=== PATIENT | female | born 1950 | race Two or more races ===

== ENCOUNTER 2024-05-18 13:14 | Outpatient (AMB) | payer MEDICARE, BC, SELFPAY ==
--- NOTE | 2024-05-18 13:33 | PD.ORTHCLVIS ---
Vital signs 05/18/24 13:34 Height 1.55 m Height Method Stated Weight 76 kg Weight Measurement Method Standing Scale BMI 31.6 BP 126/81 Blood Pressure Source Automatic Cuff Blood Pressure Location Right Upper Arm Position Sitting Respiration 18 Pulse 70 Pulse Source Monitor Temp 97.7 F Temp Source Temporal Artery Scan Pulse Oximetry (%) 94 L Oxygen Delivery Method Room Air Med/Allergies Allergies & Medications Allergies No Known Allergies Allergy (Verified 05/18/24 13:36) Medication Reconciliation aspirin 81 mg tablet,delayed release 81 mg PO QDAY 05/04/24 [History Confirmed 05/18/24] cholecalciferol (vitamin D3) 25 mcg (1,000 unit) tablet (Vitamin D3) 25 mcg PO QDAY 05/04/24 [History Confirmed 05/18/24] naproxen 250 mg tablet 250 mg PO BID PRN Pain 05/04/24 [History Confirmed 05/18/24] aspirin 81 mg tablet,delayed release 81 mg PO BID #60 tabs 05/05/24 [Rx Confirmed 05/18/24] doxycycline hyclate 100 mg tablet 100 mg PO BID #14 tabs 05/05/24 [Rx Confirmed 05/18/24] gabapentin 300 mg capsule 300 mg PO .qhs #30 caps 05/05/24 [Rx Confirmed 05/18/24] meloxicam 7.5 mg tablet 7.5 mg PO QDAY #30 tabs 05/05/24 [Rx Confirmed 05/18/24] acetaminophen 500 mg tablet (Acetaminophen Extra Strength) 1,000 mg (2 x 500 mg) PO Q6H PRN pain #90 tabs 05/11/24 [Rx Confirmed 05/18/24] oxycodone 5 mg tablet 5 mg PO Q6H PRN pain #28 tabs 05/11/24 [Rx Confirmed 05/18/24] sennosides 8.6 mg-docusate sodium 50 mg tablet (Senna-S) 1 tab-cap PO QDAY #30 tabs 05/11/24 [Rx Confirmed 05/18/24] Subjective Visit Visit for: follow up visit Immunization / Flu Flu Vaccine in the Last 12 Months: Yes Date of most recent flu vaccination: 04/03/23 Flu Vaccine Exclusion Criteria: Already Received History of Present Illness Chief complaint: 2 MONTH FOLLOW UP DAPHNE Pack is a pleasant 73-year-old female who has had knee pain. She is s/p R TKA. Personal History Red flag PMH: smoker Pain Pain level (0-10): 3 Pain duration: CONSTANT Pain location: inside (medial) Pain quality: aching Pain timing: night and increases with activity Associated signs & symptoms: weakness Ambulatory data Ambulatory device: none Treatments Improvement with previous injections: No Improvement with PT: No Improvement with NSAIDS: no Review of Systems Review of Systems: All systems negative unless otherwise noted in HPI. Exam Exam Patient is in no acute distress and is cooperative with the examination today. Breathing is nonlabored. Patient has a normal mood and affect. Bilateral extremities were evaluated and demonstrates sensation intact to light touch. Palpable pedal pulses are present. No significant edema is present. Bilateral hips were examined. The patient has no pain with log roll of the hips. Internal rotation to 30 degrees and external rotation to 30 degrees is painless. Negative FADIR. Left knee was examined today. The left knee is in reasonable alignment. Range of motion from 0-120 degrees. Knee is stable to varus and valgus as well as AP translation with <5mm. Patient has a negative McMurrays. There is no pain with patellofemoral compression and no crepitus noted. The knee is nontender to palpation. Right knee incision is clean dry intact. The swelling is time appropriate Assessment and Plan Problem List (1) Pain in right knee: Status: Acute Plan: Patient is a 73-year-old female with right knee osteoarthritis. She Is status post right total knee replacement. We will see her back in approximately 6 weeks (2) Unilateral primary osteoarthritis, right knee: Status: Acute Advanced Care Planning Discussion Advance care planning discussed with:: patient Office Procedures GNS Level of Care Nursing/Assessment Patient Status: Established Patient Nursing Assessment/Reassesment: Medication Reconciliation, Update PMH in EMR and Vital Signs Coordination of Care: Complex Care and Chronic Disease 1-5, Education Complex Pt/Fam, Consent,records obtained, informed consent, 1 Ins Authorization, Results/Orders obtained and Staff clarify orders Established Patient Charge Established Patient Point Assignment: 110 Established Patient Point Charge: EP Level 3 (80-115) Past Medical History Past Medical History Have you ever been diagnosed with any of the following: Neurological Problems Seizures: No Cardiology Problems Congestive Heart Failure: No Respiratory Problems Chronic Obstructive Pulmonary Disease (COPD): No Smoking: Yes Smoking Exposure: Yes Stomache/Intestinal Problems Hepatitis: No Obesity: Yes Genital/Urinary Problems Renal Disease: No Reproductive Problems Previous Pregnancies: Yes Musculoskeletal Problems Arthritis: Yes Carpal Tunnel Syndrome: Yes (JENIFER SX) Endocrine Problems Diabetes Mellitus Type 1: No Diabetes Mellitus Type 2: No Psychologic Problems Depression: Yes (no meds) Anxiety: Yes Other Problems Hospitalization: Yes Shingles: No Blood Transfusions: No Blood Transfusion Reaction: No Anesthesia Reactions: No Cancer: No
[2024-05-18 13:34] VITALS: BP 126/81; PULSE 70; RESP 18; TEMP 36.5; O2SAT 94; BMI 31.6
== END 2024-05-18 13:39 | disposition home or self-care (01) ==
LOC: HODSRG 13:14
PROVIDERS: Supervising Provider Orthopaedic Surgery Adult Reconstructive Orthopaedic Surgery; Visit Provider Orthopaedic Surgery Adult Reconstructive Orthopaedic Surgery
DX: M25.561 Pain in right knee (principal); M17.11 Unilateral primary osteoarthritis, right knee; Z96.651 Presence of right artificial knee joint
CPT/HCPCS: 99213; G0463

== ENCOUNTER 2024-06-22 15:00 | Outpatient (RCR) | payer MEDICARE, BC, SELFPAY ==
--- NOTE | 2024-05-31 16:08 | PT.OIERPT ---
PT OP Initial Eval Patient Information Outpatient Physical Therapy Treatment Date: 05/31/24 Visit Reasons: RIGHT TKA Medical Diagnosis: Right Knee OA Treatment Dx #1: Right Knee Pain Treatment Dx #2: Right Knee Mobility Deficits Start of Care: 05/31/24 Date of Onset: 05/05/24 Smoking Status Smoking Status: Never smoker Initial Assessment Subjective: Pt is a 74 y/o female s/p right TKA 05/05/24 due to knee OA. Pt has limitation with walking, standing, chores, self care, cooking, cleaning, stairs, and performing recreational activities. Objective: Right Knee AROM: -15 deg to 65 deg Right Knee PROM: -10 deg to 98 deg Right Knee MMTs: grossly 3-/5 Right Hip MMTs: grossly 3-/5 Gait Observation: step to with FWW Assessment: Pt demonstrate right knee mobility and strength deficits s/p TKA leading to difficulty with ADLs. Pt will benefit from physical therapy to increase ROM, strength, and work on mobility. Short Term and Gas Station Manager Goals 1) Decrease knee extension lag to -8 deg in 12 wks to have a normal gait pattern 2) Increase knee flexion AROM to 115 deg in 12 wks to be able to perform squatting activities 3) Increase knee MMTs grossly to 4/5 in 12 wks to be able to perform stairs and steps 4) Increase hip MMTs grossly to 4-/5 in 12 wks to be able to walk without AD 5) Indep with HEP Treatment Plan 1) Manual Therapy 2) Therapeutic Activities 3) Therapeutic Exercises 4) Modalities (ice, heat) 5) Balance Training 6) Gait Training Frequency and Duration: 2 x wk for 12 wks Certification Dates: 05/31/24 to 08/29/24 Procedure Charges OP PT Eval Mod Complex 30 minutes: Yes
--- NOTE | 2024-06-04 15:04 | PT.ODAYNRPT ---
PT Outpatient Daily Note OP Daily Note Outpatient Physical Therapy Treatment Date: 06/04/24 Visit Reasons: RIGHT TKA Subjective: Pt reports R knee is doing ok, has been careful and not doing much around the house due to fear of injuring R post op knee. Objective: Please see flow sheet for ther ex list. Assessment: Pt educated on performing light chores and ADL's is safe to do as long as there is no risk of fall or excessive/heavy load to R knee. Pt demonstrates she can ambulate safely in clinic with no AD, no LOB but demonstrates poor knee flexion during swing phase on R knee. Pt educated on heel toe gait pattern and increasing knee flexion during swing phase, pt can replicate but then reverts to ambulating with stiff knee. Plan: Continue with POC, work on normalizing gait. ASSISTANT CORPORATE CONTROLLER Service Modifier Method I: Divide the number of min of care provided by the ASSISTANT CORPORATE CONTROLLER/CORK INSULATION SETTER by the total min of care provided then multiply by 100. If greater than 11 percent modifier is required. Method II: Divide the total time of care provided to patient by 10 (round to the nearest whole number) and add 1 min. to set the minimum time requirement. If treatment total was 60 min., then 10% of 6 min PT CQ modifier applied: CQ Modifier applied Procedure Charges Therapeutic Activity 15 minutes: Yes Therapeutic Exercise 15 minutes: Yes
--- NOTE | 2024-06-07 11:56 | PT.ODAYNRPT ---
PT Outpatient Daily Note OP Daily Note Outpatient Physical Therapy Treatment Date: 06/07/24 Visit Reasons: RIGHT TKA Subjective: Pt's knee is better. Pt doesn't like to get hurt. Objective: Please see flow chart for list of ther ex performed Assessment: progressing with knee PROM with less pain reported. Pt very guarded with PROM and require frequent cues to help relax knee Plan: Continue with PT Length of Time (minutes) of Treatment: 30 Minutes Procedure Charges Therapeutic Exercise 30 minutes: Yes
--- NOTE | 2024-06-10 11:55 | PT.ODAYNRPT ---
PT Outpatient Daily Note OP Daily Note Outpatient Physical Therapy Treatment Date: 06/10/24 Visit Reasons: RIGHT TKA Subjective: Pt reports R knee is doing ok, c/o stiffness and pain. Objective: Please see flow sheet for ther ex list. Assessment: Pt demonstrates poor knee flexion during swing phase, cues to increase hip and knee flexion to improve toe clearance. Plan: Continue with POC. Length of Time (minutes) of Treatment: 30 Minutes SURVEYOR CHAIN HELPER Service Modifier Method I: Divide the number of min of care provided by the SURVEYOR CHAIN HELPER/EXECUTIVE SOUS CHEF by the total min of care provided then multiply by 100. If greater than 11 percent modifier is required. Method II: Divide the total time of care provided to patient by 10 (round to the nearest whole number) and add 1 min. to set the minimum time requirement. If treatment total was 60 min., then 10% of 6 min PT CQ modifier applied: CQ Modifier applied Procedure Charges Therapeutic Exercise 30 minutes: Yes
--- NOTE | 2024-06-18 14:49 | PT.ODAYNRPT ---
PT Outpatient Daily Note OP Daily Note Outpatient Physical Therapy Treatment Date: 06/18/24 Visit Reasons: RIGHT TKA Subjective: Pt's knee feels better. Pt wants to attempt a complete cycle on the bike today. Objective: Please see flow chart for list of ther ex performed Assessment: progressing with knee flexion AROM; patient able to complete a full cycle on the sci fit with minimal pain Plan: Continue with PT Length of Time (minutes) of Treatment: 30 Minutes Procedure Charges Therapeutic Exercise 30 minutes: Yes
--- NOTE | 2024-06-22 15:30 | PTNOTE_ITS ---
PT Outpatient Daily Note OP Daily Note Outpatient Physical Therapy Treatment Date: 06/22/24 Visit Reasons: RIGHT TKA Subjective: Pt reports R knee is doing better, is not using FWW in home and notices for the most part she jut t carries it around when has it. Objective: Please see flow sheet for ther ex list. Assessment: ROM in R knee continues to improve. Pt ambulating with no AD, no LOB no sway. Plan: Continue with POC. Length of Time (minutes) of Treatment: 30 Minutes SCALE MANAGER Service Modifier Method I: Divide the number of min of care provided by the SCALE MANAGER/LEAD RUBY ON RAILS DEVELOPER by the total min of care provided then multiply by 100. If greater than 11 percent modifier is required. Method II: Divide the total time of care provided to patient by 10 (round to the nearest whole number) and add 1 min. to set the minimum time requirement. If treatment total was 60 min., then 10% of 6 min PT CQ modifier applied: CQ Modifier applied Procedure Charges Therapeutic Exercise 30 minutes: Yes
== END 2024-06-22 23:59 | disposition home or self-care (01) ==
LOC: CPTX 15:00
PROVIDERS: PCP Orthopaedic Surgery Adult Reconstructive Orthopaedic Surgery; Referring Provider Orthopaedic Surgery Adult Reconstructive Orthopaedic Surgery; Visit Provider Orthopaedic Surgery Adult Reconstructive Orthopaedic Surgery
DX: M25.561 Pain in right knee (principal); R26.2 Difficulty in walking, not elsewhere classified; Z96.651 Presence of right artificial knee joint
CPT/HCPCS: 97110; 97162; 97530

== ENCOUNTER 2024-06-29 14:58 | Outpatient (AMB) | payer MEDICARE, BC, SELFPAY ==
[2024-06-29 15:17] VITALS: BP 134/85; PULSE 83; RESP 19; TEMP 36.2; O2SAT 96; BMI 32.6
--- NOTE | 2024-06-29 15:17 | PD.ORTHCLVIS ---
Vital signs 06/29/24 15:17 Height 1.55 m Height Method Stated Weight 78.528 kg Weight Measurement Method Standing Scale BMI 32.6 BP 134/85 H Blood Pressure Source Automatic Cuff Blood Pressure Location Right Upper Arm Position Sitting Respiration 19 Pulse 83 Pulse Source Monitor Temp 97.2 F Temp Source Temporal Artery Scan Pulse Oximetry (%) 96 Oxygen Delivery Method Room Air Med/Allergies Allergies & Medications Allergies No Known Allergies Allergy (Verified 06/29/24 15:18) Medication Reconciliation aspirin 81 mg tablet,delayed release 81 mg PO QDAY 05/04/24 [History Confirmed 06/29/24] cholecalciferol (vitamin D3) 25 mcg (1,000 unit) tablet (Vitamin D3) 25 mcg PO QDAY 05/04/24 [History Confirmed 06/29/24] naproxen 250 mg tablet 250 mg PO BID PRN Pain 05/04/24 [History Confirmed 06/29/24] aspirin 81 mg tablet,delayed release 81 mg PO BID #60 tabs 05/05/24 [Rx Confirmed 06/29/24] doxycycline hyclate 100 mg tablet 100 mg PO BID #14 tabs 05/05/24 [Rx Confirmed 06/29/24] gabapentin 300 mg capsule 300 mg PO .qhs #30 caps 05/05/24 [Rx Confirmed 06/29/24] meloxicam 7.5 mg tablet 7.5 mg PO QDAY #30 tabs 05/05/24 [Rx Confirmed 06/29/24] acetaminophen 500 mg tablet (Acetaminophen Extra Strength) 1,000 mg (2 x 500 mg) PO Q6H PRN pain #90 tabs 05/11/24 [Rx Confirmed 06/29/24] sennosides 8.6 mg-docusate sodium 50 mg tablet (Senna-S) 1 tab-cap PO QDAY #30 tabs 05/11/24 [Rx Confirmed 06/29/24] oxycodone 5 mg tablet 5 mg PO Q6H PRN pain #28 tabs 05/25/24 [Rx Confirmed 06/29/24] Exam Exam Patient is in no acute distress and is cooperative with the examination today. Breathing is nonlabored. Patient has a normal mood and affect. Bilateral extremities were evaluated and demonstrates sensation intact to light touch. Palpable pedal pulses are present. No significant edema is present. Bilateral hips were examined. The patient has no pain with log roll of the hips. Internal rotation to 30 degrees and external rotation to 30 degrees is painless. Negative FADIR. Left knee was examined today. The left knee is in reasonable alignment. Range of motion from 0-120 degrees. Knee is stable to varus and valgus as well as AP translation with <5mm. Patient has a negative McMurrays. There is no pain with patellofemoral compression and no crepitus noted. The knee is nontender to palpation. Right knee incision is clean dry intact. The swelling is time appropriate. Range of motion is 0 to 105 degrees Assessment and Plan Problem List (1) Unilateral primary osteoarthritis, right knee: Status: Acute Plan: Patient is a 73-year-old female status post right total knee replacement. She is doing well. She has minimal pain. She would like to see us back in approximately 2 months for routine follow-up We will get x-rays for the next visit. She should continue physical therapy Advanced Care Planning Discussion Advance care planning discussed with:: patient Office Procedures GNS Level of Care Nursing/Assessment Patient Status: Established Patient Nursing Assessment/Reassesment: Medication Reconciliation, Update PMH in EMR and Vital Signs Coordination of Care: Complex Care and Chronic Disease 1-5, Education Complex Pt/Fam, Consent,records obtained, informed consent, Results/Orders obtained and Staff clarify orders Established Patient Charge Established Patient Point Assignment: 95 Established Patient Point Charge: EP Level 3 (80-115) MA Intake Visit Data Collection New Patient or Established: Established Patient (seen at [facility] within 3 years) Reason for Visit:: POST OP RT TKA Seen by Clinical Staff ONLY (RN/MA): No Verbal consent obtained for Telemed visit?: No Biomedical Field Service Engineer Required: No PCP or OBGYN visit in last 3 months: Yes Hx Now: No Do You Feel Safe at Home: Yes Authorities Contacted: N/A Questionairres Past Medical History Past Medical History Have you ever been diagnosed with any of the following: Neurological Problems Seizures: No Cardiology Problems Congestive Heart Failure: No Respiratory Problems Chronic Obstructive Pulmonary Disease (COPD): No Smoking: Yes Smoking Exposure: Yes Stomache/Intestinal Problems Hepatitis: No Obesity: Yes Genital/Urinary Problems Renal Disease: No Reproductive Problems Previous Pregnancies: Yes Musculoskeletal Problems Arthritis: Yes Carpal Tunnel Syndrome: Yes (JENIFER SX) Endocrine Problems Diabetes Mellitus Type 1: No Diabetes Mellitus Type 2: No Psychologic Problems Depression: Yes (no meds) Anxiety: Yes Other Problems Hospitalization: Yes Shingles: No Blood Transfusions: No Blood Transfusion Reaction: No Anesthesia Reactions: No Cancer: No Subjective Visit Visit for: post op #2 Immunization / Flu Flu Vaccine in the Last 12 Months: No Flu Vaccine Exclusion Criteria: No Exclusion Criteria History of Present Illness Chief complaint: POST OP RT TKA Sirena is 2 months status post right total knee replacement. She is very happy with her progress. She reports minimal pain Pain Pain level (0-10): 2 Pain duration: COMES AND GOES Pain location: inside (medial) Pain quality: aching Associated signs & symptoms: none Ambulatory data Ambulatory device: none Treatments Improvement with previous injections: No Improvement with PT: No Improvement with NSAIDS: n/a Review of Systems Review of Systems: All systems negative unless otherwise noted in HPI.
== END 2024-06-29 15:32 | disposition home or self-care (01) ==
LOC: HODSRG 14:58
PROVIDERS: PCP Internal Medicine Hospice and Palliative Medicine; Referring Provider Internal Medicine Hospice and Palliative Medicine; Supervising Provider Orthopaedic Surgery Adult Reconstructive Orthopaedic Surgery; Visit Provider Orthopaedic Surgery Adult Reconstructive Orthopaedic Surgery
DX: M17.11 Unilateral primary osteoarthritis, right knee (principal); Z96.651 Presence of right artificial knee joint
CPT/HCPCS: 99213; G0463

== ENCOUNTER 2024-07-22 09:30 | Outpatient (RCR) | payer MEDICARE, BC, SELFPAY ==
--- NOTE | 2024-06-25 15:40 | PTNOTE_ITS ---
PT Outpatient Daily Note OP Daily Note Outpatient Physical Therapy Treatment Date: 06/25/24 Visit Reasons: right tka Subjective: Pt reports knee is doing better. Objective: Please see flow sheet for ther ex list. Assessment: Pt demonstrates good control with ascending and descending steps during exercise, pt performed with single BUSINESS INTELLIGENCE MANAGER. Plan: Continue with POC. Length of Time (minutes) of Treatment: 30 Minutes NET PROGRAMMER Service Modifier Method I: Divide the number of min of care provided by the NET PROGRAMMER/COTY by the total min of care provided then multiply by 100. If greater than 11 percent modifier is required. Method II: Divide the total time of care provided to patient by 10 (round to the nearest whole number) and add 1 min. to set the minimum time requirement. If treatment total was 60 min., then 10% of 6 min PT CQ modifier applied: CQ Modifier applied Procedure Charges Therapeutic Exercise 30 minutes: Yes
--- NOTE | 2024-06-30 13:53 | PT.ODAYNRPT ---
PT Outpatient Daily Note OP Daily Note Outpatient Physical Therapy Treatment Date: 06/30/24 Visit Reasons: right tka Subjective: Pt's knee is better. Pt recently seen surgeon and is happy with her result. Surgeon is allowing her to start driving. Objective: Please see flow chart for list of ther ex performed Assessment: tolerate exercises with minimal pain and progressing with knee ROM and closed chain exercises Plan: Continue with PT Length of Time (minutes) of Treatment: 30 Minutes Procedure Charges Therapeutic Exercise 30 minutes: Yes
--- NOTE | 2024-07-02 15:11 | PTNOTE_ITS ---
PT Outpatient Daily Note OP Daily Note Outpatient Physical Therapy Treatment Date: 07/02/24 Visit Reasons: right tka Subjective: Pt reports R knee is doing better, had follow up with surgeon and surgeon is content with pt progress. Pt shared that surgeon cleared her to drive. Objective: Please see flow sheet for ther ex list. Assessment: Pt demonstrates minimal antalgic gait, can correct with cues but then reverts to ambulating with antalgic gait. Plan: Continue with POC. Work on normalizing gait. Length of Time (minutes) of Treatment: 30 Minutes SUPERVISOR VENDOR QUALITY Service Modifier Method I: Divide the number of min of care provided by the SUPERVISOR VENDOR QUALITY/COTY by the total min of care provided then multiply by 100. If greater than 11 percent modifier is required. Method II: Divide the total time of care provided to patient by 10 (round to the nearest whole number) and add 1 min. to set the minimum time requirement. If treatment total was 60 min., then 10% of 6 min PT CQ modifier applied: CQ Modifier applied Procedure Charges Therapeutic Exercise 30 minutes: Yes
--- NOTE | 2024-07-07 08:41 | PT.ODAYNRPT ---
PT Outpatient Daily Note OP Daily Note Outpatient Physical Therapy Treatment Date: 07/07/24 Visit Reasons: right tka Subjective: Pt finally driving independently. Pt's knee is better. Objective: Please see flow chart for list of ther ex performed Assessment: progressing with closed chain exercises and decrease antalgic gait noted without AD Plan: Continue with PT Length of Time (minutes) of Treatment: 30 Minutes Procedure Charges Therapeutic Exercise 30 minutes: Yes
--- NOTE | 2024-07-13 10:55 | PT.ODAYNRPT ---
PT Outpatient Daily Note OP Daily Note Outpatient Physical Therapy Treatment Date: 07/13/24 Visit Reasons: right tka Subjective: Pt's knee is better. Pt is unsure of the next appt with Dr Becker. Pt has been able to stand and walk longer with less pain. Objective: Please see flow chart for list of ther ex performed Assessment: tolerate exercises with minimal pain and progress patient to normal squat with good form noted Plan: Continue with PT Length of Time (minutes) of Treatment: 30 Minutes Procedure Charges Therapeutic Exercise 30 minutes: Yes
--- NOTE | 2024-07-15 10:41 | PT.ODAYNRPT ---
PT Outpatient Daily Note OP Daily Note Outpatient Physical Therapy Treatment Date: 07/15/24 Visit Reasons: right tka Subjective: Pt reports R knee is doing better. Objective: Please see flow sheet for ther ex list. Assessment: Focus on restoring functional strength, step up exercise competed with minimal BICYCLE MECHANIC. Plan: Continue with pOC. Length of Time (minutes) of Treatment: 30 Minutes ANESTHESIOLOGIST AND CRITICAL CARE Service Modifier Method I: Divide the number of min of care provided by the ANESTHESIOLOGIST AND CRITICAL CARE/CONTRACTOR FIELD HAULING by the total min of care provided then multiply by 100. If greater than 11 percent modifier is required. Method II: Divide the total time of care provided to patient by 10 (round to the nearest whole number) and add 1 min. to set the minimum time requirement. If treatment total was 60 min., then 10% of 6 min PT CQ modifier applied: CQ Modifier applied Procedure Charges Therapeutic Exercise 30 minutes: Yes
--- NOTE | 2024-07-20 10:15 | PTNOTE_ITS ---
PT Outpatient Daily Note OP Daily Note Outpatient Physical Therapy Treatment Date: 07/20/24 Visit Reasons: right tka Subjective: Pt reports R knee is doing better. Objective: Please see flow sheet for ther ex list. Assessment: Increased step height for step up exercise pt performed with minimal to no CLINICAL MOLECULAR GENETICIST. Plan: Continue with poC. Length of Time (minutes) of Treatment: 30 Minutes DATA ENTRY CLERK Service Modifier Method I: Divide the number of min of care provided by the DATA ENTRY CLERK/COTY by the total min of care provided then multiply by 100. If greater than 11 percent modifier is required. Method II: Divide the total time of care provided to patient by 10 (round to the nearest whole number) and add 1 min. to set the minimum time requirement. If treatment total was 60 min., then 10% of 6 min PT CQ modifier applied: CQ Modifier applied Procedure Charges Therapeutic Exercise 30 minutes: Yes
--- NOTE | 2024-07-22 10:06 | PT.ODAYNRPT ---
PT Outpatient Daily Note OP Daily Note Outpatient Physical Therapy Treatment Date: 07/22/24 Visit Reasons: right tka Subjective: Pt reports knee is doing better but is having trouble crossing leg over to tie her shoes. Objective: Please see flow sheet for ther ex list. Assessment: Pt instructed on figure 4 stretch exercise to work toward pt being able to cross legs to tie shoe. Plan: Continue with POC. Length of Time (minutes) of Treatment: 30 Minutes STAFF MINE WARFARE OFFICER Service Modifier Method I: Divide the number of min of care provided by the STAFF MINE WARFARE OFFICER/COTY by the total min of care provided then multiply by 100. If greater than 11 percent modifier is required. Method II: Divide the total time of care provided to patient by 10 (round to the nearest whole number) and add 1 min. to set the minimum time requirement. If treatment total was 60 min., then 10% of 6 min PT CQ modifier applied: CQ Modifier applied
== END 2024-07-23 23:59 | disposition home or self-care (01) ==
LOC: CPTX 09:30
PROVIDERS: PCP Orthopaedic Surgery Adult Reconstructive Orthopaedic Surgery; Referring Provider Orthopaedic Surgery Adult Reconstructive Orthopaedic Surgery; Visit Provider Orthopaedic Surgery Adult Reconstructive Orthopaedic Surgery
DX: M25.561 Pain in right knee (principal); R26.2 Difficulty in walking, not elsewhere classified; Z96.651 Presence of right artificial knee joint
CPT/HCPCS: 97110

== ENCOUNTER 2024-08-19 08:30 | Outpatient (RCR) | payer MEDICARE, BC, SELFPAY ==
--- NOTE | 2024-07-29 10:17 | PT.ODAYNRPT ---
PT Outpatient Daily Note OP Daily Note Outpatient Physical Therapy Treatment Date: 07/29/24 Visit Reasons: RIGHT KNEE SURGERY Subjective: Pt's knee is stiff and aches today leading to difficulty with walking. Pt further mentioned she still has limitation with putting on her shoes. Objective: Please see flow chart for list of ther ex performed Assessment: instructed patient on figure four stretch in sitting to helped assist with putting on her shoes. Pt's limitation with movement is more hip vs knee mobility Plan: Continue with PT Length of Time (minutes) of Treatment: 30 Minutes Procedure Charges Therapeutic Exercise 30 minutes: Yes
--- NOTE | 2024-08-03 09:02 | PT.ODAYNRPT ---
PT Outpatient Daily Note OP Daily Note Outpatient Physical Therapy Treatment Date: 08/03/24 Visit Reasons: RIGHT KNEE SURGERY Subjective: Pt reports R knee is progressing but expressed she still has trouble bringing her leg up to tie her shoe while sitting. Objective: Please see flow sheet for ther ex list. Assessment: Pt able to complete increase reps during TG squat exercise indicating progression with muscle endurance. Plan: Continue with POC. Length of Time (minutes) of Treatment: 30 Minutes MOTEL FRONT DESK CLERK Service Modifier Method I: Divide the number of min of care provided by the MOTEL FRONT DESK CLERK/INTERIOR DESIGN COORDINATOR by the total min of care provided then multiply by 100. If greater than 11 percent modifier is required. Method II: Divide the total time of care provided to patient by 10 (round to the nearest whole number) and add 1 min. to set the minimum time requirement. If treatment total was 60 min., then 10% of 6 min PT CQ modifier applied: CQ Modifier applied Procedure Charges Therapeutic Exercise 30 minutes: Yes
--- NOTE | 2024-08-05 10:24 | PT.ODAYNRPT ---
PT Outpatient Daily Note OP Daily Note Outpatient Physical Therapy Treatment Date: 08/05/24 Visit Reasons: RIGHT KNEE SURGERY Subjective: Pt still has difficulty with putting on her right shoe. Overall knee is feeling much better and less stiff. Objective: Please see flow chart for list of ther ex performed Assessment: difficulty with figure four stretch due to hip ER and knee flexion restriction. Pt instructed to continue stretch at home to help with improving functional movement. Pt gave verbal understanding Plan: Continue with PT Length of Time (minutes) of Treatment: 30 Minutes Procedure Charges Therapeutic Exercise 30 minutes: Yes
--- NOTE | 2024-08-11 13:39 | PT.ODAYNRPT ---
PT Outpatient Daily Note OP Daily Note Outpatient Physical Therapy Treatment Date: 08/11/24 Visit Reasons: RIGHT KNEE SURGERY Subjective: Pt notice putting on her shoes is getting easier. Objective: Please see flow chart for list of ther ex performed Assessment: improving with figure four passive ROM. slight difficulty with side step on airex due to imbalance, however, able to complete instructed reps Plan: Continue with PT Length of Time (minutes) of Treatment: 30 Minutes Procedure Charges Therapeutic Exercise 30 minutes: Yes
--- NOTE | 2024-08-17 09:34 | PTNOTE_ITS ---
PT Outpatient Daily Note OP Daily Note Outpatient Physical Therapy Treatment Date: 08/17/24 Visit Reasons: RIGHT KNEE SURGERY Subjective: Pt reports knee is doing better but lately has been noticing her knee clicking/popping. Objective: Please see flow sheet for ther ex list. Assessment: Added interventions completed with minimal single BUTTON GRADER. Plan: Continue with POC. Length of Time (minutes) of Treatment: 30 Minutes COOK HELPER MEAT Service Modifier Method I: Divide the number of min of care provided by the COOK HELPER MEAT/NONPROFIT FINANCIAL CONTROLLER by the total min of care provided then multiply by 100. If greater than 11 percent modifier is required. Method II: Divide the total time of care provided to patient by 10 (round to the nearest whole number) and add 1 min. to set the minimum time requirement. If treatment total was 60 min., then 10% of 6 min PT CQ modifier applied: CQ Modifier applied Procedure Charges Therapeutic Exercise 30 minutes: Yes
--- NOTE | 2024-08-19 09:02 | PT.ODAYNRPT ---
PT Outpatient Daily Note OP Daily Note Outpatient Physical Therapy Treatment Date: 08/19/24 Visit Reasons: RIGHT KNEE SURGERY Subjective: Pt still need help with putting on her shoes. The movement is getting easier. Objective: Please see flow chart for list of ther ex performed Assessment: progressing with figure four stretch and ROM with less pain reported at the hip and knee. Plan: Continue with PT Length of Time (minutes) of Treatment: 30 Minutes Procedure Charges Therapeutic Exercise 30 minutes: Yes
== END 2024-08-20 23:59 | disposition home or self-care (01) ==
LOC: CPTX 08:30
PROVIDERS: PCP Orthopaedic Surgery Adult Reconstructive Orthopaedic Surgery; Referring Provider Orthopaedic Surgery Adult Reconstructive Orthopaedic Surgery; Visit Provider Orthopaedic Surgery Adult Reconstructive Orthopaedic Surgery
DX: M25.561 Pain in right knee (principal); R26.2 Difficulty in walking, not elsewhere classified; Z96.651 Presence of right artificial knee joint; M17.11 Unilateral primary osteoarthritis, right knee
CPT/HCPCS: 97110

== ENCOUNTER 2024-08-26 09:00 | Outpatient (RCR) | payer MEDICARE, BC, SELFPAY ==
--- NOTE | 2024-08-24 10:13 | PTNOTE_ITS ---
PT Outpatient Daily Note OP Daily Note Outpatient Physical Therapy Treatment Date: 08/24/24 Visit Reasons: right knee surgery Subjective: Pt reports R knee is progressing although today she has pain feels it is due to cold weather. Objective: Please see flow sheet for ther ex list. Assessment: Pt ROm and strength continues to improve. Plan: Assess for note, pt has one visit left. Length of Time (minutes) of Treatment: 30 Minutes PARAOPTOMETRIC Service Modifier Method I: Divide the number of min of care provided by the PARAOPTOMETRIC/SPECIAL WEAPONS UNIT OFFICER by the total min of care provided then multiply by 100. If greater than 11 percent modifier is required. Method II: Divide the total time of care provided to patient by 10 (round to the nearest whole number) and add 1 min. to set the minimum time requirement. If treatment total was 60 min., then 10% of 6 min PT CQ modifier applied: CQ Modifier applied Procedure Charges Therapeutic Exercise 30 minutes: Yes
--- NOTE | 2024-08-26 09:29 | PT.ODS1RPT ---
PT OP Progress/Discharge Note Date of Service: 08/26/24 Progress Note/DC Note Progress Note/Discharge Note: DC Note Patient Information Visit Reasons: right knee surgery Medical Diagnosis: Right Knee OA Treatment Dx #1: Right Knee Mobility Deficits Treatment Dx #2: Right Knee Pain Service Discharge Date: 08/26/24 Status Subjective: Pt's knee is better. Pt has been able to stand, walk, perform chores, and ADLs with minimal limitation. At this time Pt feels comfortable being release from care with exercises to continue at home. Objective: Right Knee AROM: -6 deg to 120 deg Right Knee MMTs: grossly 4/5 Right Hip MMTs: grossly 4/5 Assessment: Pt demonstrate functional right knee mobility and strength allowing her to perform ADLs with less limitation. Pt has met set goals in therapy and will no longer benefit from physical therapy. Pt was instructed on HEP last session and educated to continue exercises to maintain overall mobility. Pt performed all exercises safely, thank you for your referrals. Plan: D/C home with HEP and follow up with MD GRIFFIN Procedure Charges Therapeutic Exercise 30 minutes: Yes
== END 2024-09-20 23:59 | disposition home or self-care (01) ==
LOC: CPTX 09:00
PROVIDERS: PCP Orthopaedic Surgery Adult Reconstructive Orthopaedic Surgery; Referring Provider Orthopaedic Surgery Adult Reconstructive Orthopaedic Surgery; Visit Provider Orthopaedic Surgery Adult Reconstructive Orthopaedic Surgery
DX: M25.561 Pain in right knee (principal); R26.2 Difficulty in walking, not elsewhere classified; Z96.651 Presence of right artificial knee joint; M17.11 Unilateral primary osteoarthritis, right knee
CPT/HCPCS: 97110

== ENCOUNTER → 2024-09-15 | Outpatient (CLI) | payer MEDICARE, BC, SELFPAY ==
--- NOTE | 2024-09-15 10:45 | XR_ITS ---
Examination: Screening digital mammography, bilateral Computer aided detection 3-D breast Tomosynthesis, bilateral Date and time of exam: September 15, 2024 1028 hours Compared to April 16, 2023 Indication: Screening Technique: Nonmagnified MLO, CC views of the breasts to been obtained, reconstructed from 3-D Tomosynthesis images. R2 computer aided detection program utilized for evaluation of suspicious masses and/or abnormal calcifications. 3-D Tomosynthesis images obtained. Findings: Scattered areas of fibroglandular density. Benign calcifications. No interval suspicious masses Impression: BI-RADS category II: Benign Findings. Recommend 1 year follow-up mammogram.
== END | disposition home or self-care (01) ==
LOC: CDIM 10:12
PROVIDERS: Referring Provider Nurse Practitioner Family; Visit Provider Nurse Practitioner Family
DX: Z12.31 Encounter for screening mammogram for malignant neoplasm of breast (principal); R92.323 Mammographic fibroglandular density, bilateral breasts; R92.1 Mammographic calcification found on diagnostic imaging of breast
CPT/HCPCS: 77063; 77067

== ENCOUNTER → 2024-09-29 | Outpatient (CLI) | payer MEDICARE, BC, SELFPAY ==
[2024-09-29 08:37] LABS: Basophils % (Auto) 1 % (0-2.5); Eosinophils # (Auto) 0.6 Thou/mm3 (0.0-0.5); Eosinophils % (Auto) 11 % (0-10); Hematocrit 39.8 % (36.0-46.0); Hemoglobin 12.9 g/dL (12.0-16.0); Immature Granulocytes % (Auto) 0 % (0-0); Immature Granulocytes Auto 0.01 Thou/mm3 (0.00-0.00); Lymphocytes % (Auto) 39 % (10-50); Mean Corpuscular HGB Conc 32.4 g/dl (31.0-37.0); Mean Corpuscular Hemoglobin 29.3 pg (25.0-35.0); Mean Corpuscular Volume 91 fL (80-100); Monocytes # (Auto) 0.5 Thou/mm3 (0.0-0.8); Monocytes % (Auto) 9 % (0-12); Neutrophils # (Auto) 2.1 Thou/mm3 (1.8-7.7); Neutrophils % (Auto) 40 % (37-80); Nucleated Red Blood Cell % 0 /100 WBC (0); Platelet Count 268 Thou/mm3 (140-440); RDW Standard Deviation 46.8 fL (36.4-46.3); White Blood Count 5.3 Thou/mm3 (3.6-11.0)
[2024-09-29 08:49] LABS: Glucose Estimated Average 123 mg/dL (80-131); Hemoglobin A1C 5.9 % Hgb (4.8-6.0)
[2024-09-29 09:08] LABS: Creatinine MALB Rnd Ur 95 mg/dL (30-125); Microalbumin Creat Ratio 46 mg/gCrea (<30); Microalbumin, Random Urine 44 mg/L (0-300)
[2024-09-29 09:14] LABS: Alanine Aminotransferase < 7 U/L (10-49); Albumin, Serum 4.2 gm/dL (3.4-4.8); Albumin/Globulin Ratio 1.3 (1.2-2.2); Alkaline Phosphatase 125 U/L (46-116); Anion Gap 7 (7-16); Aspartate Amino Transferase 15 U/L (0-34); BUN/Creatinine Ratio 14 Ratio (12-20); Bilirubin,Total 0.2 mg/dL (0.3-1.2); Blood Urea Nitrogen 13 mg/dL (9-23); Calcium 9.2 mg/dL (8.3-10.6); Calcium (Corrected) 9.2 mg/dL (8.5-10.1); Carbon Dioxide 26.3 mMol/L (20.0-31.0); Cardiac Risk Estimate 5.8 RATIO (3.7-5.6); Chloride 109 mMol/L (98-107); Cholesterol 203 mg/dL (132-200); Creatinine (Component) 0.9 mg/dL (0.6-1.3); Globulin 3.2 gm/dL (2.3-3.5); Glucose 106 mg/dL (74-106); HDL Cholesterol 35 mg/dL (40-60); LDL Cholesterol,Calculated 135 mg/dL (0-130); Osmolality,Calculated 283 (275-295); Potassium 4.4 mMol/L (3.4-5.1); Sodium 142 mMol/L (136-145); Thyroid Stimulating Hormone 3.68 uIU/mL (0.55-4.78); Total Protein 7.4 gm/dL (5.7-8.2); Triglycerides 167 mg/dL (30-150); eGFR > 60 See Note
== END | disposition home or self-care (01) ==
LOC: COPL 06:53
PROVIDERS: PCP Internal Medicine Hospice and Palliative Medicine; Referring Provider Nurse Practitioner Family; Visit Provider Nurse Practitioner Family
DX: E78.2 Mixed hyperlipidemia (principal); E66.9 Obesity, unspecified; R73.03 Prediabetes; Z86.39 Personal history of other endocrine, nutritional and metabolic disease
CPT/HCPCS: 36415; 80053; 80061; 82043; 82306; 82570; 83036; 84443; 85025

== ENCOUNTER → 2024-11-22 | Outpatient (CLI) | payer MEDICARE, BC, SELFPAY ==
--- NOTE | 2024-11-22 14:50 | XR_ITS ---
Examination: Hand, right 3 views Technique: Hand AP, oblique, lateral 3 views Date and time of exam: November 22, 2024 1455 hours INDICATIONS: Swelling over the first digit months FINDINGS: Soft tissue swelling about the first digit No fractures No cortical bone destruction Advanced osteoarthritis first carpometacarpal joint IMPRESSION: Soft tissue swelling about the first digit No opaque foreign body No cortical bone destruction Advanced osteoarthritis first carpometacarpal joint
--- NOTE | 2024-11-22 14:50 | XR_ITS ---
Examination: Wrist, right 3 views Technique: Wrist AP, oblique, lateral 3 views Date and time of exam: November 22, 2024 1455 hours INDICATIONS: Swelling of the thumb months FINDINGS: Advanced osteoarthritis first carpometacarpal joint Mild narrowing radiocarpal joint No wrist fracture or dislocation No erosive arthritis IMPRESSION: Advanced osteoarthritis first carpometacarpal joint
== END | disposition home or self-care (01) ==
PROVIDERS: PCP Internal Medicine Hospice and Palliative Medicine; Referring Provider Nurse Practitioner Gerontology; Visit Provider Nurse Practitioner Gerontology
DX: M18.11 Unilateral primary osteoarthritis of first carpometacarpal joint, right hand (principal); M25.441 Effusion, right hand
CPT/HCPCS: 73110; 73130

== ENCOUNTER → 2025-01-31 | Outpatient (CLI) | payer MEDICARE, BC, SELFPAY ==
--- NOTE | 2025-01-31 15:30 | XR_ITS ---
Examination: CT right hand, without contrast. 2-D sagittal reconstructions. 2-D coronal reconstructions. 3-D reconstructions. Date and time of exam:January 31, 2025, 1619 hours INDICATIONS: Swollen first digit, no injury, beginning one month ago CTDI: vol (mGy):3.60 DLP: (mGycm):90.7 Technique: Multiple 1.25 mm axial sections of the right hand without intravenous contrast have been obtained. 2-D sagittal and coronal reconstructions have been obtained. 3-D reconstructions have been obtained. Low dose protocols were performed. One or more of the following dose reduction techniques were used; automated exposure control, adjustment of the mA and/or KV according to patient size, use of iterative reconstruction technique. Findings: Distal radius distal ulna is intact Navicular lunate intact Advanced osteoarthritis first carpometacarpal joint with prominent osteophyte formation and old small bone fragments No fracture or No cortical bone destruction No opaque foreign body Cystic mass which is palmar to the first digit, 3.8 x 1.5 cm IMPRESSION: Advanced osteoarthritis first carpometacarpal joint. Cystic mass which is palmar to first digit, 3.9 x 1.5 cm, differential would include cyst, abscess, less likely cystic tumor, clinical correlation advised Consider MRI scan pre and postcontrast follow-up
== END | disposition home or self-care (01) ==
PROVIDERS: PCP Internal Medicine Hospice and Palliative Medicine; Referring Provider Nurse Practitioner Family; Visit Provider Nurse Practitioner Family
DX: M18.11 Unilateral primary osteoarthritis of first carpometacarpal joint, right hand (principal)
CPT/HCPCS: 73200

== ENCOUNTER → 2025-02-16 | Outpatient (CLI) | payer MEDICARE, BC, SELFPAY ==
--- NOTE | 2025-02-16 14:09 | XR_ITS ---
Examination: CT chest, without intravenous contrast. Sagittal and coronal 2-D reconstructions. Exam date and time: February 16, 2025, 1443 hours INDICATIONS: Nicotine dependence, smoking history 20 years, coughing 5 days CTDI:vol (mGy) 13.1 DLP: (mGycm) 455 Technique: Multiple 3.0 mm axial sections of the chest to been obtained. Bone and lung density settings are obtained. Sagittal and coronal 2-D reconstructions have been obtained. Low dose protocols were performed. One or more of the following dose reduction techniques were used; automated exposure control, adjustment of the mA and/or KV according to patient size, use of iterative reconstruction technique. Findings: No thoracic aortic aneurysm dilatation. Pulmonary artery segments are not enlarged. No paratracheal tracheobronchial or bronchopulmonary adenopathy. 3 mm pulmonary nodule left upper lobe 6 mm pulmonary nodule in the lingular segment. No interval pneumonia or pulmonary edema No visualized liver or splenic lesion Contracted gallbladder No pancreatic mass Kidneys partially visualized no hydronephrosis Moderate osteopenia IMPRESSION: Subcentimeter pulmonary nodules as above, with this study as baseline recommend 6 month follow-up CT chest without contrast
== END | disposition home or self-care (01) ==
LOC: CCTX 13:45
PROVIDERS: PCP Internal Medicine Hospice and Palliative Medicine; Referring Provider Nurse Practitioner Family; Visit Provider Nurse Practitioner Family
DX: R91.8 Other nonspecific abnormal finding of lung field (principal); F17.210 Nicotine dependence, cigarettes, uncomplicated
CPT/HCPCS: 71271